=== PATIENT | female | born 1995 | race Caucasian/White ===

== ENCOUNTER 2018-08-30 11:37 | Inpatient (IN) | payer OTHER ==
[2018-08-30] MEDS ORDERED: Nicotine Inhaler* 10 MG AMP INH PRN (12:23)
[2018-08-30] MEDS ORDERED: Mouth Piece, Nicotine* 1 EACH CARTRIDGE INH ONE (13:00)
[2018-08-30 13:02] LABS: ABS Basophils 0 10^3/ul (0-0.2); ABS Eosinophils 0.2 10^3/ul (0-0.6); ABS Lymphocytes 1.9 10^3/ul (1.0-4.8); ABS Monocytes 0.5 10^3/ul (0-0.8); ABS Neutrophils 3.2 10^3/ul (1.5-7.7); ABS Nucleated RBC 0 10^3/ul; Eosinophil % 2.8 %; Hematocrit 40 % (35-47); Hemoglobin 13.6 g/dl (12.0-16.0); Lymphocyte % 32.8 %; Mean Corpuscular HGB Conc 34 g/dl (31-36); Mean Corpuscular Hemoglobin 32 pg (27-31); Mean Corpuscular Volume 94 fL (80-97); Nucleated Red Blood Cells % 0; Platelet Count 234 10^3/ul (150-450); Red Blood Count 4.31 10^6/ul (4.00-5.40); Red Cell Distribution Width 13 % (10.5-15); White Blood Count 5.9 10^3/ul (3.5-10.8)
[2018-08-30 13:02] LABS: Urine Appearance Turbid; Urine Bacteria Absent (Absent); Urine Bilirubin Negative (Negative); Urine Blood Negative (Negative); Urine Color Yellow; Urine Glucose Negative (Negative); Urine Ketones Negative (Negative); Urine Nitrite Negative (Negative); Urine Protein 1+(30 mg/dL) (Negative); Urine Red Blood Cell Absent (Absent); Urine Squamous Epithelial Cell Present (Absent); Urine Urobilinogen Negative (Negative); Urine White Blood Cell Trace(0-5/hpf) (Absent)
[2018-08-30 13:17] LABS: Barbiturates Urine Screen None Detected (None Detect); Benzodiazepine Urine Screen None Detected (None Detect); Urine Cannabinoids Screen Presumptive Positive (None Detect)
[2018-08-30 13:20] LABS: ALT 16 U/L (7-52); AST 9 U/L (13-39); Albumin 4.6 g/dL (3.2-5.2); Albumin/Globulin Ratio 1.8 (1-3); Alkaline Phosphatase 70 U/L (34-104); Anion Gap 4 mmol/L (2-11); BUN/Creatinine Ratio 17.7 (8-20); Blood Urea Nitrogen 11 mg/dL (6-24); CO2 Carbon Dioxide 28 mmol/L (22-32); Calcium 9.4 mg/dL (8.6-10.3); Chloride 106 mmol/L (101-111); EGFR Non-African American 121.5 (>60); Globulin 2.5 g/dL (2-4); Glucose 95 mg/dL (70-100); Potassium 4.2 mmol/L (3.5-5.0); Sodium 138 mmol/L (135-145); Total Protein 7.1 g/dL (6.4-8.9)
[2018-08-30 14:32] LABS: TSH (Thyroid Stimulating Horm) 2.15 mcIU/mL (0.34-5.60)
[2018-08-30 14:38] LABS: Acetaminophen < 15 mcg/mL; Alcohol < 10 mg/dL (<10); Salicylate < 2.50 mg/dL (<30)
--- NOTE | 2018-08-30 15:40 | ED ---
Psychiatric Complaint - HPI Summary HPI Summary: Patient is a 22-year-old female with a complicated medical history presenting to the ED with suicidal ideations. She states she was recently placed on Vimpat for her seizures and she notes this to have a black box warning of suicidal thoughts. She states although she has had suicidal thoughts for most of her life, they have recently increased since being on this medication. She states she deals with a lot of medical issues on a daily basis, which is contributory to her anxiety and depression. She states she has highs and lows, having good and bad days. Today is a "normal day." She states she is easy to anger approximately 2 days ago she states she threw her phone against the wall for something very minor. She denies any drug use except for cannabis, denies any alcohol use. - History Of Current Complaint Chief Complaint: EDMentalHealth Time Seen by Provider: 08/30/18 11:50 Hx Obtained From: Patient Hx Last Menstrual Period: pt. has IUD ?: No Onset/Duration: Sudden Onset Timing: Constant Severity Initially: Moderate Severity Currently: Moderate Character: Manic, Depressed, Anxious Aggravating Factor(s): Nothing Alleviating Factor(s): Nothing Associated Signs And Symptoms: Positive: Negative Has Suicidal: Reports: Thoughts - Risk Factor(s) Completed Suicide Risk Factors: Negative - Allergies/Home Medications Allergies/Adverse Reactions: Allergies Allergy/AdvReac Type Severity Reaction Status Date / Time MS Infliximab [From Remicade] Allergy Severe resp Verified 02/18/17 10:26 failure MS Ibuprofen [Ibuprofen] AdvReac Unknown See Comment Verified 02/18/17 10:26 Home Medications: Home Medications LaCOSAMide LIQ [VimPAT LIQ] 10 ml PO BID MDD 20 ml 08/30/18 [History Confirmed 08/30/18] PMH/Surg Hx/FS Hx/Imm Hx Previously Healthy: Yes Endocrine/Hematology History: Reports: Hx Blood Disorders - von Willebrands, Hx Blood Transfusions - Humate P Denies: Hx Diabetes Cardiovascular History: Denies: Hx Hypertension, Hx Pacemaker/ICD Respiratory History: Denies: Hx Asthma GI History: Reports: Other GI Disorders - colectomy, abnormal us last episode pain 5 days prior History: Denies: Hx Renal Disease Musculoskeletal History: Denies: Hx Rheumatoid Arthritis - arthritisis in back, neck pain, hx of steriods at age 2-11, Hx Osteoporosis Sensory History: Denies: Hx Contacts or Glasses, Hx Hearing Aid Opthamlomology History: Denies: Hx Contacts or Glasses Neurological History: Reports: Hx Seizures - epilepsy, Other Neuro Impairments/ Disorders - , per mother pt still experiences seizures with meds in the past Psychiatric History: Denies: Hx Panic Disorder - Surgical History Surgery Procedure, Year, and Place: colectomy 2007 hx crohns r/t beeding disorder;. fallopian tubes removed - Immunization History Hx Pertussis Vaccination: No Immunizations Up to Date: Yes Infectious Disease History: No Infectious Disease History: Denies: Traveled Outside the [place] in Last 30 Days - Social History Occupation: Unemployed Lives: With Family Alcohol Use: None Hx Substance Use: No Substance Use Type: Reports: None Hx Tobacco Use: No Smoking Status (MU): Never Smoked Tobacco Have You Smoked in the Last Year: No Review of Systems Constitutional: Negative Negative: Fever, Chills, Fatigue, Skin Diaphoresis Negative: Palpitations, Chest Pain Negative: Shortness Of Breath, Cough Genitourinary: Negative Positive: no symptoms reported, see HPI Negative: Arthralgia, Myalgia Negative: Headache, Weakness, Paresthesia Positive: Anxious, Depressed All Other Systems Reviewed And Are Negative: Yes Physical Exam Triage Information Reviewed: Yes Vital Signs On Initial Exam: Initial Vitals Temp Pulse Resp BP Pulse Ox 96.8 F 102 18 119/80 99 08/30/18 11:41 08/30/18 11:41 08/30/18 11:41 08/30/18 11:41 08/30/18 11:41 Vital Signs Reviewed: Yes Appearance: Positive: Well-Appearing, Well-Nourished Skin: Positive: Warm, Skin Color Reflects Adequate Perfusion Head/Face: Positive: Normal Head/Face Inspection Eyes: Positive: EOMI, IRIS, Conjunctiva Clear Neck: Positive: Supple, No Lymphadenopathy Respiratory/Lung Sounds: Positive: Clear to Auscultation, Breath Sounds Present Cardiovascular: Positive: RRR, Pulses are Symmetrical in both Upper and Lower Extremities Musculoskeletal: Positive: Normal, Strength/ROM Intact Neurological: Positive: Speech Normal Psychiatric: Positive: Anxious, Other AVPU Assessment: Alert Diagnostics - Vital Signs Vital Signs Temp Pulse Resp BP Pulse Ox 08/30/18 11:41 96.8 F 102 18 119/80 99 - Laboratory Lab Results: Lab Results 08/30/18 08/30/18 08/30/18 Range/Units 12:06 12:06 12:51 WBC 5.9 (3.5-10.8) 10^3/ul RBC 4.31 (4.00-5.40) 10^6/ul Hgb 13.6 (12.0-16.0) g/dl Hct 40 (35-47) % MCV 94 (80-97) fL MCH 32 H (27-31) pg MCHC 34 (31-36) g/dl RDW 13 (10.5-15) % Plt Count 234 (150-450) 10^3/ul MPV 9.0 (7.4-10.4) fL Neut % (Auto) 55.3 % Lymph % (Auto) 32.8 % [place] % (Auto) 8.3 % Eos % (Auto) 2.8 % Baso % (Auto) 0.8 % Absolute Neuts (auto) 3.2 (1.5-7.7) 10^3/ul Absolute Lymphs (auto) 1.9 (1.0-4.8) 10^3/ul Absolute Monos (auto) 0.5 (0-0.8) 10^3/ul Absolute Eos (auto) 0.2 (0-0.6) 10^3/ul Absolute Basos (auto) 0 (0-0.2) 10^3/ul Absolute Nucleated RBC 0 10^3/ul Nucleated RBC % 0 Sodium (135-145) mmol/L Potassium (3.5-5.0) mmol/L Chloride (101-111) mmol/L Carbon Dioxide (22-32) mmol/L Anion Gap (2-11) mmol/L BUN (6-24) mg/dL Creatinine (0.51-0.95) mg/dL Est GFR ( Amer) (>60) Est GFR (Non-Af Amer) (>60) BUN/Creatinine Ratio (8-20) Glucose (70-100) mg/dL Calcium (8.6-10.3) mg/dL Total Bilirubin (0.2-1.0) mg/dL AST (13-39) U/L ALT (7-52) U/L Alkaline Phosphatase (34-104) U/L Total Protein (6.4-8.9) g/dL Albumin (3.2-5.2) g/dL Globulin (2-4) g/dL Albumin/Globulin Ratio (1-3) TSH (0.34-5.60) mcIU/mL Urine Color Yellow Urine Appearance Turbid Urine pH 9.0 (5-9) Ur Specific [place] 1.020 (1.010-1.030) Urine Protein 1+(30 mg/dl) A (Negative) Urine Ketones Negative (Negative) Urine Blood Negative (Negative) Urine Nitrate Negative (Negative) Urine Bilirubin Negative (Negative) Urine Urobilinogen Negative (Negative) Ur Leukocyte Esterase 1+ A (Negative) Urine WBC (Auto) Trace(0-5/hpf) (Absent) Urine RBC (Auto) Absent (Absent) Ur Squamous Epith Cells Present A (Absent) Urine Bacteria Absent (Absent) Urine Glucose Negative (Negative) Salicylates (<30) mg/dL Urine Opiates Screen None detected (None Detect) Acetaminophen mcg/mL Ur Barbiturates Screen None detected (None Detect) Ur Phencyclidine Scrn None detected (None Detect) Ur Amphetamines Screen None detected (None Detect) U Benzodiazepines Scrn None detected (None Detect) Urine Cocaine Screen None detected (None Detect) U Cannabinoids Screen Presumptive positive A (None Detect) Serum Alcohol (<10) mg/dL 08/30/18 Range/Units 12:51 WBC (3.5-10.8) 10^3/ul RBC (4.00-5.40) 10^6/ul Hgb (12.0-16.0) g/dl Hct (35-47) % MCV (80-97) fL MCH (27-31) pg MCHC (31-36) g/dl RDW (10.5-15) % Plt Count (150-450) 10^3/ul MPV (7.4-10.4) fL Neut % (Auto) % Lymph % (Auto) % [place] % (Auto) % Eos % (Auto) % Baso % (Auto) % Absolute Neuts (auto) (1.5-7.7) 10^3/ul Absolute Lymphs (auto) (1.0-4.8) 10^3/ul Absolute Monos (auto) (0-0.8) 10^3/ul Absolute Eos (auto) (0-0.6) 10^3/ul Absolute Basos (auto) (0-0.2) 10^3/ul Absolute Nucleated RBC 10^3/ul Nucleated RBC % Sodium 138 (135-145) mmol/L Potassium 4.2 (3.5-5.0) mmol/L Chloride 106 (101-111) mmol/L Carbon Dioxide 28 (22-32) mmol/L Anion Gap 4 (2-11) mmol/L BUN 11 (6-24) mg/dL Creatinine 0.62 (0.51-0.95) mg/dL Est GFR ( Amer) 147.0 (>60) Est GFR (Non-Af Amer) 121.5 (>60) BUN/Creatinine Ratio 17.7 (8-20) Glucose 95 (70-100) mg/dL Calcium 9.4 (8.6-10.3) mg/dL Total Bilirubin 0.40 (0.2-1.0) mg/dL AST 9 L (13-39) U/L ALT 16 (7-52) U/L Alkaline Phosphatase 70 (34-104) U/L Total Protein 7.1 (6.4-8.9) g/dL Albumin 4.6 (3.2-5.2) g/dL Globulin 2.5 (2-4) g/dL Albumin/Globulin Ratio 1.8 (1-3) TSH 2.15 (0.34-5.60) mcIU/mL Urine Color Urine Appearance Urine pH (5-9) Ur Specific [place] (1.010-1.030) Urine Protein (Negative) Urine Ketones (Negative) Urine Blood (Negative) Urine Nitrate (Negative) Urine Bilirubin (Negative) Urine Urobilinogen (Negative) Ur Leukocyte Esterase (Negative) Urine WBC (Auto) (Absent) Urine RBC (Auto) (Absent) Ur Squamous Epith Cells (Absent) Urine Bacteria (Absent) Urine Glucose (Negative) Salicylates < 2.50 (<30) mg/dL Urine Opiates Screen (None Detect) Acetaminophen < 15 mcg/mL Ur Barbiturates Screen (None Detect) Ur Phencyclidine Scrn (None Detect) Ur Amphetamines Screen (None Detect) U Benzodiazepines Scrn (None Detect) Urine Cocaine Screen (None Detect) U Cannabinoids Screen (None Detect) Serum Alcohol < 10 (<10) mg/dL Result Diagrams: 08/30/18 12:51 08/30/18 12:51 Lab Statement: Any lab studies that have been ordered have been reviewed, and results considered in the medical decision making process. Course/Dx - Course Course Of Treatment: Patient is evaluated for increasing suicidal ideations. She states she has had this for several years, however this has increased recently. She denies any plan. She states she is having a tough time dealing with her physical medical problems. She denies any pain at this time. She states today is a "normal day." However she has good and bad days. She endorses labile emotions and moods and is unable to control it well. She endorses self-harm, most recently approximately 5 days ago when she pinched her skin very hard. This left no pedroza and she denies any trauma otherwise. Labs obtained are WNL. Tox screen shows cannabinoids, negative for alcohol or other drugs. She is cleared for mental health evaluation. She is signed out to Dylon Collazo NP at 5:30 pending MHU. Assessment/Plan: Patient received full mental health evaluation and was accepted for admission by the psychiatrist on a voluntary basis. - Differential Dx/Clinical Impression Differential Diagnosis/HQI/PQRI: Positive: Anxiety, Depression Provider Diagnosis: Suicidal ideation, Depressive disorder, not elsewhere classified Discharge - Sign-Out/Discharge Documenting (check all that apply): Patient Departure Patient Received Moderate/Deep Sedation with Procedure: No - Discharge Plan Condition: Stable [place] [place]errals: Celine Watkins MD [Primary Care Provider] - - Billing Disposition and Condition Condition: STABLE Disposition: [place] [facility] [place] - Attestation Statements Document Initiated by Andresibstephon: No
[2018-08-30] MEDS ORDERED: Al Hydrox/Mg Hydrox/Simet LIQ* 30 ML UDC PO PRN (16:27)
[2018-08-30] MEDS ORDERED: Acetaminophen TAB* 325 MG PO PRN (16:27)
--- NOTE | 2018-08-30 17:43 | ED ---
Progress - Progress Note Progress Note: Receiving sign out from JEAN-PIERRE Gray, pending MHE. As per Dr. Hatch pt will be admitted to [facility] [place] with a final dx of depression. Course/Dx - Diagnoses Provider Diagnoses: Depression - Provider Notifications Discussed Care Of Patient With: Yamil Hatch Time Discussed With Above Provider: 17:35 Instructed by Provider To: Admit As Inpatient Discharge - Sign-Out/Discharge Documenting (check all that apply): Patient Departure - Admit, Receiving Sign- Out Receiving patient FROM: Lani Ellison Patient Received Moderate/Deep Sedation with Procedure: No - Discharge Plan Condition: Stable Disposition: PSYCHIATRIC FACILITY[place] [place] Referrals: Celine Watkins MD [Primary Care Provider] - - Attestation Statements Document Initiated by Scribe: Yes Documenting Scribe: Adelaida Quintero Provider For Whom Scribe is Documenting (Include Credential): Jakob Mendoza MD Scribe Attestation: Adelaida Mays, scribed for Jakob Mendoza MD on 08/30/18 at 1741. Status of Scribe Document: Ready
[2018-08-30] MEDS: LaCOSAMide ORAL LIQ 10 MG/ML PO SCH (21:47)
[2018-08-30] MEDS: hydrOXYzine HCL TAB* 50 MG PO PRN (22:14)
[2018-08-31 08:24] LABS: HDL Cholesterol 40.3 mg/dL
[2018-08-31] MEDS: LaCOSAMide ORAL LIQ 10 MG/ML PO SCH ×2 (08:51→20:14)
--- NOTE | 2018-08-31 10:35 | HP ---
H&P (Free Text) History and Physical: Justification for admission: Immediate Safety. CC " I felt that I gave up." The patient was brought to [facility] by mother after having thoughts of cutting her wrist. She said I have a blood disorder and I know I would if I cut myself. She reported getting angry lately and throwing her phone and getting upset with her mother. She reported that she has not been enjoying things that she once did such as writing and going to school. She wants to be remembered and loved. She said that lately she can only think of all the bad things in her life and can not remember any of the good things. She scratched herself and punched her self in the legs. She has been smoking cannabis daily for the last month or so because she said it helps with her anxiety. She denied access to firearms or stockpiles of medications. She reports mediocre sleep and reports it is hard to have motivation to do anything. She reported having adequate appetite. The patient denied homicidal ideation intent or plan. The patient denied auditory and/ or visual hallucinations. MDD She reported feeling depressed or having diminished interest in hobbies or interests which were present in the past , for most of the time, lasting more than 2 weeks. She reported having crying spells , feeling empty inside, feelings of hopelessness or worthless. She denied unintentional weight loss or appetite . She reported feeling no purpose in life. Anxiety She reported having symptoms of anxiety such as having times where heart feels that it is beating out of chest , sweaty palms, or shallow breathing. Denied having uncomfortable or intrusive thoughts. Reported feeling restless, high strung, or worrying too much most of the time. Bipolar Denied symptoms of kathy such as having many ideas at once. Denied increased talkativeness where no one can interrupt. Denied feeling irritable most of the time while having an persistent abundance of energy most of the day without the use of energy drinks, stimulants, or recreational drug use. Denied an increase in intensity in goal directed activities. Denied having the decreased need to sleep for days , having prolonged elevated heighted mood , or feeling on top of the world. Denied impulsive risky sexual encounters. Denied spending money recklessly , going on spending sprees wiping out savings. Denied impulsively traveling out of town or country, having super arias, and unrealistic wealth or fame. Psychosis Does not endorse hearing things that other people do not hear or seeing things other people do not see. Denied feeling that TV is making references. Denied feeling that people are spying , following , or reading their thoughts. Phobias: Patient denied having excessive fear of a particular thing or situation. Eating disorders: Patient denied having excessive eating habits or feelings of guilt after eating. Denied repeated episodes of self induced vomiting after eating. PTSD Denied flashbacks, nightmares and avoidance of a prior traumatic event. PAST PSYCHIATRIC HISTORY: Prior Diagnosis : None History of past Psychiatric Hospitalizations: No prior psychiatric admission. History of past suicide/homicide attempts : Denied past suicide attempts. She denied past homicidal incidents. Outpatient follow-up: [facility] Medications: Denied Past trials of medications FAMILY HISTORY: - Suicide: denied suicide in the family. - Mental illness: Mother history of depression with no treatment. - Substance abuse: Father - Alcohol abuse SUBSTANCE ABUSE HISTORY: She denied using tobacco, heroin and cocaine other illicit substances. She denied abusing pills not prescribed . She denied past Substance abuse treatment. - EtOH: drinks socially 1-2x month < 5drinks - Cannabis: Smokes daily for the couple of months SOCIAL HISTORY: - Childhood: She grew up in [place] and spend a significant time in [facility] receiving medical treatment. She was raised by her mother and her father never had a role in her life. She had her colon removed and reports having a horrible experience with doctors in the past and wrote a book about the dudes in [employer] - Education: Currently in College - Living situation: Lives with friend in [facility]. - Relationship: single no children never . - Legal history: Denied - service history: Denied PAST MEDICAL HISTORY: 1) Seizure Disorder 2) Colitis 3) Chrons Disease 4) Pseudo tumor cerebri 5) Von Willebrand Disease 6) Osteopenia 7) History of surgery - removal of colon and fallopian tubes. Currently has IUD. Allergies: Infliximab and Ibuprofen Physical Exam: Please see ED note Mental Status Exam on Admission APPEARANCE : 22 year old female who appears stated age. Patient is not malodourous, and appears to have fair hygiene and grooming. BEHAVIOR: Cooperative , calm EYE CONTACT: Fair PSYCHOMOTOR ACTIVITY: No psychomotor agitation or retardation. MOVEMENTS: No abnormal movements observed. SPEECH : Normal rate, rhythm, volume and tone. MOOD : " I am sad" AFFECT : Constricted Range. Mood incongruent. THOUGHT PROCESS: formulated and organized in a logical, linear goal directed manner. No flight of ideas , neologisms, circumstantial, or tangential thought process. THOUGHT CONTENT: Preoccupation of negative experiences in the past . PERCEPTION: No current auditory or visual hallucinations. Doesnt appear to be responding to internal cues. No evidence of depersonalization , de-realization, or illusions COGNITIVE: Concentration, memory , and fund of knowledge intact SUICIDALITY suicidal ideation with plan to cut her wrist HOMICIDALITY Denied homicidal ideation, intent or plan. ORIENTATION: Oriented to self, location, and time. 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 Panic Disorder. Cannabis Use disorder. Assessment: 22 year old sil with no past psychiatric history came to the hospital and was admitted to the BSU at [facility] for suicidal ideation with plan to cut her wrist. Plan # Justification for Admission: For immediate safety per outlined in the [place] Mental Hygiene Code. # Voluntary admission. The patient requires inpatient admission at this time to assure safety, receive treatment and work toward stabilization. #Patient evaluated in ED and was determined by the emergency room Physician to be medically stable for admission to the BSU. # Labs ordered: CBC, CMP, UDS, TSH, TSH, B-HCG . EKG. #Admit to BSU, Q15 minute observation. Start customized diet per nutrition services and dietary services . Encourage participation in activities on the milieu. # Obtain collateral information from mother once release is signed. #Start celexa 20mg PO daily. #Per neurology Vimpat 100mg BID for seizure disorder. # Collaboration with Social Work to work toward discharge planning. #Seizure precautions in place. # TRIM LINE WORKER consult to for vaginal bleeding and discharge. #EKG reviewed by section crews activities clerk hospitalist and determined to be normal and no need for further evaluation #Neurology on board and was consulted in the ED #Goals before discharge include: Decrease Anxiety and dysphoria. #Dietary Consult for dietary choices in those with Chrons disease. The risks, benefits, and alternative treatment options were discussed as well as of the risks of refusing treatment. After this discussion and an acknowledgement of this understanding was made. A risk benefit assessment of treatment was considered and discussed with the patient. When comparing the risks of treatment with the dangers of current clinical presentation. The benefits of treatment outweigh the treatment risks at this time. Risks of behavioral changes, serotonin syndrome, risks, seizure , and suicidal ideation were among some of the risks discussed. Vital Signs Temp Pulse Resp BP Pulse Ox 98.5 F 75 18 110/62 100 08/31/18 07:41 08/31/18 07:41 08/31/18 07:41 08/31/18 07:41 08/31/18 07:41 08/30/18 08/30/18 08/30/18 12:06 12:06 12:51 WBC 5.9 RBC 4.31 Hgb 13.6 Hct 40 MCV 94 MCH 32 H MCHC 34 RDW 13 Plt Count 234 MPV 9.0 Neut % (Auto) 55.3 Lymph % (Auto) 32.8 [place] % (Auto) 8.3 Eos % (Auto) 2.8 Baso % (Auto) 0.8 Absolute Neuts (auto) 3.2 Absolute Lymphs (auto) 1.9 Absolute Monos (auto) 0.5 Absolute Eos (auto) 0.2 Absolute Basos (auto) 0 Absolute Nucleated RBC 0 Nucleated RBC % 0 Sodium Potassium Chloride Carbon Dioxide Anion Gap BUN Creatinine Est GFR ( Amer) Est GFR (Non-Af Amer) BUN/Creatinine Ratio Glucose Hemoglobin A1c Calcium Total Bilirubin AST ALT Alkaline Phosphatase Total Protein Albumin Globulin Albumin/Globulin Ratio Triglycerides Cholesterol LDL Cholesterol HDL Cholesterol TSH Urine Color Yellow Urine Appearance Turbid Urine pH 9.0 Ur Specific [place] 1.020 Urine Protein 1+(30 mg/dl) A Urine Ketones Negative Urine Blood Negative Urine Nitrate Negative Urine Bilirubin Negative Urine Urobilinogen Negative Ur Leukocyte Esterase 1+ A Urine WBC (Auto) Trace(0-5/hpf) Urine RBC (Auto) Absent Ur Squamous Epith Cells Present A Urine Bacteria Absent Urine Glucose Negative Salicylates Urine Opiates Screen None detected Acetaminophen Ur Barbiturates Screen None detected Ur Phencyclidine Scrn None detected Ur Amphetamines Screen None detected U Benzodiazepines Scrn None detected Urine Cocaine Screen None detected U Cannabinoids Screen Presumptive positive A Serum Alcohol 08/30/18 08/31/18 08/31/18 12:51 07:48 07:48 WBC RBC Hgb Hct MCV MCH MCHC RDW Plt Count MPV Neut % (Auto) Lymph % (Auto) [place] % (Auto) Eos % (Auto) Baso % (Auto) Absolute Neuts (auto) Absolute Lymphs (auto) Absolute Monos (auto) Absolute Eos (auto) Absolute Basos (auto) Absolute Nucleated RBC Nucleated RBC % Sodium 138 Potassium 4.2 Chloride 106 Carbon Dioxide 28 Anion Gap 4 BUN 11 Creatinine 0.62 Est GFR ( Amer) 147.0 Est GFR (Non-Af Amer) 121.5 BUN/Creatinine Ratio 17.7 Glucose 95 Hemoglobin A1c 4.8 Calcium 9.4 Total Bilirubin 0.40 AST 9 L ALT 16 Alkaline Phosphatase 70 Total Protein 7.1 Albumin 4.6 Globulin 2.5 Albumin/Globulin Ratio 1.8 Triglycerides 144 Cholesterol 126 LDL Cholesterol 57 HDL Cholesterol 40.3 TSH 2.15 Urine Color Urine Appearance Urine pH Ur Specific [place] Urine Protein Urine Ketones Urine Blood Urine Nitrate Urine Bilirubin Urine Urobilinogen Ur Leukocyte Esterase Urine WBC (Auto) Urine RBC (Auto) Ur Squamous Epith Cells Urine Bacteria Urine Glucose Salicylates < 2.50 Urine Opiates Screen Acetaminophen < 15 Ur Barbiturates Screen Ur Phencyclidine Scrn Ur Amphetamines Screen U Benzodiazepines Scrn Urine Cocaine Screen U Cannabinoids Screen Serum Alcohol < 10
--- NOTE | 2018-08-31 11:00 | PN ---
BSU: Group Therapy Note - Service Type Service Type: [id number] Group Psychotherapy - Cognitive Behavioral Group Therapy ( CBT):Patient was attentive and participatory in CBT programming this morning, and remained in good behavioral control. Patient expressed positive insights regarding relevant treatment interventions and goals.
[2018-08-31] MEDS ORDERED: Citalopram TAB* 20 MG PO SCH (13:00)
[2018-08-31] MEDS ORDERED: Ondansetron TAB* 4 MG ONE ×2 (16:37→16:38)
[2018-08-31] MEDS: Ondansetron TAB* 4 MG PO PRN (16:41)
[2018-08-31] MEDS: hydrOXYzine HCL TAB* 50 MG PO PRN (19:19)
[2018-09-01] MEDS: LaCOSAMide ORAL LIQ 10 MG/ML PO SCH ×2 (08:51→20:06)
--- NOTE | 2018-09-01 09:15 | PN ---
Progress Note - Progress Note Date of Service: 09/01/18 Note: consult for vaginal discharge 22 yo g0 with a complaint of a vaginal discharge with an odor. no itching or burning. concerned she may have BV. pt currently uses an iud for control and control of her menstrual bleeding related to von willebrands disease. Pt is currently not sexualy active and has not been for over 6 months. gc/ chlamydia to be done off urine affirm done at bedside for BV/teast / Trich pt and I spent time discussing her hormone interaction with her depression. pt concerned that the iud may have some impact on this. I discussed there is no way to tell if the iud is adversely affecting her mood without removal . She had enough trouble with her cycles and other oc's that seems like a poor choice. There are no helpful hormone levels to check that would provide us with that information surrounding the iud. Will rx BV if present on affirm suggest she follow up as an outpatient with a nurse practitioner per diem if she wishes to explore alternatives to her iud Jose Ramon Harry MD
[2018-09-01 13:53] LABS: Neisseria gonorrhoeae (GC) RNA Negative (Negative)
--- NOTE | 2018-09-01 14:30 | PN ---
Subjective - Subjective Date of Service: 09/01/18 Service Type: [id number] Hosp care 35 min high complexity Subjective: Nursing Report: Patient was visible on unit, no chemical restraints or PRNs. Seizure yesterday evening. Attending group activities. CC: "I am okay Patient was seen and evaluated in the common room. Her family visited today and visit went well. The patient reported she feels safe on the unit and is interacting with peers. She voices her concern about the possibility of the new medication will cause seizures. She reported having an adequate appetite and sleep. The patient reports attending and participating in day groups. Per nursing no behavioral issues or overnight events reported. She denied homicidal ideation intent or plan. She denied auditory and or visual hallucinations. She fell during a seziure and went for a x-ray of her elbow. Objective - Appearance Appearance: Healthy Appearing Dysmorphic Features: No Hygiene: Normal Grooming: Well Kept - Behavior Psychomotor Activities: Normal Exhibits Abnormal Movement: No - Attitude and Relatedness Attitude and Relatedness: Cooperative Eye Contact: Fair - Speech Quality: Unpressured Latencies: Normal Quantity: Appropriate - Mood Patient's Decription of Mood: "Okay" - Affect Observed Affect: Depressed Affect Consistent with: Euthymia - Thought Process Patient's Thought Process: Goal Directed Thought Content: Yes Suicidal Planning, No Passive Wish, No Homicidal Ideation, No Paranoid Ideation - Sensorium Experiencing Hallucinations: No, Sensorium is Clear Type of Hallucinations: Visual: No, Auditory: No, Command: No - Level of Consciousness Level of Consciousness: Alert Orientation: Yes Intact, Yes Orientated to Time, Yes Orientated to Place, Yes Orientated to Person - Impulse Control Impulse Control: Impaired - Insight and Judgement Insight and Judgement: Fair - Group Participation Particating in Group Activities: Yes - Medication Management Medication Management Adherence: Yes Assessment - Assessment Merits Inpatient Hospitalization: For Immediate Safety Clinical Impression: Assessment: 22 year old sil with no past psychiatric history came to the hospital and was admitted to the BSU at [facility] for suicidal ideation with plan to cut her wrist. Plan - Plan Treatment Plan: Name: LILIA VENEGAS Birthdate: 1995 [id number] Plan # Voluntary admission. The patient requires inpatient admission at this time to assure safety, receive treatment and work toward stabilization. #Q30 minute observation with staff pass. #Start lexapro 5mg po at night. Monitor for seizure. #Continue Vimpat 100mg BID for seizure disorder. #Seizure precautions in place. Patient refused medical bed. #D/C celexa #Zofran 4mg Q6H PRN for nausea # ETHYLENE PLANT OPERATOR consult completed #Xray of elbow completed and no fractures were evident Vital Signs Temp Pulse Resp BP Pulse Ox 99.1 F 86 16 106/70 99 09/01/18 08:05 09/01/18 08:05 09/01/18 08:05 09/01/18 08:05 09/01/18 08:05 Laboratory Results - last 24 hr 08/31/18 17:30 C.trachomatis (Amp Det) Negative N.gonorrhoeae (Amp Det) Negative Acetaminophen (Tylenol Tab*) 650 mg PO Q4H PRN PRN Reason: for pain; or Temp >101 F Last Admin: 09/01/18 13:04 Dose: 650 mg Al Hydrox/Mg Hydrox/Simethicone (Maalox Plus*) 30 ml PO Q4H PRN PRN Reason: INDIGESTION Escitalopram Oxalate (Lexapro (Nf)) 5 mg PO BEDTIME MAXIMILIAN Hydroxyzine HCl (Atarax Tab*) 50 mg PO Q6H PRN PRN Reason: ANXIETY Last Admin: 08/31/18 19:19 Dose: 50 mg Lacosamide (Vimpat Liq) 100 mg PO BID MAXIMILIAN Last Admin: 09/01/18 08:51 Dose: 100 mg Nicotine (Nicotine Inhaler*) 10 mg INH Q2H PRN PRN Reason: CRAVING Ondansetron HCl (Zofran Tab*) 4 mg PO Q6H PRN PRN Reason: NAUSEA Last Admin: 08/31/18 16:41 Dose: 4 mg Sodium 138 mmol/L (135-145) 08/30/18 12:51 Potassium 4.2 mmol/L (3.5-5.0) 08/30/18 12:51 BUN 11 mg/dL (6-24) 08/30/18 12:51 Creatinine 0.62 mg/dL (0.51-0.95) 08/30/18 12:51 Hemoglobin A1c 4.8 % (4.0-5.6) 08/31/18 07:48 Calcium 9.4 mg/dL (8.6-10.3) 08/30/18 12:51 AST 9 U/L (13-39) L 08/30/18 12:51 ALT 16 U/L (7-52) 08/30/18 12:51 Triglycerides 144 mg/dL 08/31/18 07:48 Cholesterol 126 mg/dL 08/31/18 07:48 LDL Cholesterol 57 mg/dL 08/31/18 07:48 Continued Medication Management: Start Medication Medications: Current Medications Acetaminophen (Tylenol Tab*) 650 mg PO Q4H PRN PRN Reason: for pain; or Temp >101 F Last Admin: 09/01/18 13:04 Dose: 650 mg Al Hydrox/Mg Hydrox/Simethicone (Maalox Plus*) 30 ml PO Q4H PRN PRN Reason: INDIGESTION Escitalopram Oxalate (Lexapro (Nf)) 5 mg PO BEDTIME MAXIMILIAN Hydroxyzine HCl (Atarax Tab*) 50 mg PO Q6H PRN PRN Reason: ANXIETY Last Admin: 08/31/18 19:19 Dose: 50 mg Lacosamide (Vimpat Liq) 100 mg PO BID MAXIMILIAN Last Admin: 09/01/18 08:51 Dose: 100 mg Nicotine (Nicotine Inhaler*) 10 mg INH Q2H PRN PRN Reason: CRAVING Ondansetron HCl (Zofran Tab*) 4 mg PO Q6H PRN PRN Reason: NAUSEA Last Admin: 08/31/18 16:41 Dose: 4 mg - Discharge Plan Discharge Plan: Inpatient Hospitalization
[2018-09-01] MEDS: CMCS Escitalopram (NF) 5 MG TAB PO SCH (20:50)
[2018-09-02] MEDS: LaCOSAMide ORAL LIQ 10 MG/ML PO SCH ×2 (09:25→19:57)
[2018-09-02] MEDS: Ondansetron TAB* 4 MG PO PRN ×2 (11:14→23:28)
--- NOTE | 2018-09-02 15:02 | PN ---
Subjective - Subjective Date of Service: 09/02/18 Service Type: 67729 Hosp care 15 min low complexity Subjective: Lilia is seen in weekend coverage for Dr. Arcos. I met with her individually, and thereafter with her mother Daya Venegas, who was visiting the unit for lunch. Lilia denies SI this morning. She is experiencing some nausea, which she attributes to the new trial of escitalopram. She denies any further seizure activity since the change to Lexapro. She is future-oriented, reporting that she has an intake appointment scheduled with an epileptology specialist in [place], [place] named Dr. Blank, who she and her mother describe as "holistic." I assumed this to mean they would be pursuing medical cannabis but I admittedly did not clarify this with them. Staff reports indicate that the patient is calm and adherent with milieu expectations. Objective - Appearance Appearance: Well Developed/Nourished Dysmorphic Features: No Hygiene: Normal Grooming: Well Kept - Behavior Psychomotor Activities: Normal Exhibits Abnormal Movement: No - Attitude and Relatedness Attitude and Relatedness: Cooperative Eye Contact: Good - Speech Quality: Unpressured Latencies: Normal Quantity: Appropriate - Mood Patient's Decription of Mood: "Okay" - Affect Observed Affect: Fair Affect Consistent with: Euthymia - Thought Process Patient's Thought Process: Coherent Thought Content: No Passive Wish, No Suicidal Planning, No Homicidal Ideation, No Paranoid Ideation - Sensorium Experiencing Hallucinations: No, Sensorium is Clear Type of Hallucinations: Visual: No, Auditory: No, Command: No - Level of Consciousness Level of Consciousness: Alert Orientation: Yes Intact, Yes Orientated to Time, Yes Orientated to Place, Yes Orientated to Person - Impulse Control Impulse Control: Tenuous - Insight and Judgement Insight and Judgement: Fair - Group Participation Particating in Group Activities: Yes - Medication Management Medication Management Adherence: Yes Assessment - Assessment Merits Inpatient Hospitalization: For Immediate Safety, For Stabilization Inpatient DSM-V Dx: F06.32 Clinical Impression: Assessment: 22 year old sil with no past psychiatric history came to the hospital and was admitted to the BSU at [facility] for suicidal ideation with plan to cut her wrist. 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 The patient requires inpatient admission at this time to assure safety, receive treatment and work toward stabilization. #Q30 minute observation with staff pass. #Start lexapro 5mg po at night. Monitor for seizure. #Continue Vimpat 100mg BID for seizure disorder. #Seizure precautions in place. Patient refused medical bed. #D/C celexa #Zofran 4mg Q6H PRN for nausea # CONSERVATION ENGINEER consult completed #Xray of elbow completed and no fractures were evident Continued Medication Management: Start Medication Medications: Current Medications Acetaminophen (Tylenol Tab*) 650 mg PO Q4H PRN PRN Reason: for pain; or Temp >101 F Last Admin: 09/01/18 13:04 Dose: 650 mg Al Hydrox/Mg Hydrox/Simethicone (Maalox Plus*) 30 ml PO Q4H PRN PRN Reason: INDIGESTION Escitalopram Oxalate (Lexapro (Nf)) 5 mg PO BEDTIME MAXIMILIAN Last Admin: 09/01/18 20:50 Dose: 5 mg Hydroxyzine HCl (Atarax Tab*) 50 mg PO Q6H PRN PRN Reason: ANXIETY Last Admin: 08/31/18 19:19 Dose: 50 mg Lacosamide (Vimpat Liq) 100 mg PO BID MAXIMILIAN Last Admin: 09/02/18 09:25 Dose: 100 mg Nicotine (Nicotine Inhaler*) 10 mg INH Q2H PRN PRN Reason: CRAVING Ondansetron HCl (Zofran Tab*) 4 mg PO Q6H PRN PRN Reason: NAUSEA Last Admin: 09/02/18 11:14 Dose: 4 mg - Discharge Plan Discharge Plan: Inpatient Hospitalization
[2018-09-02] MEDS: CMCS Escitalopram (NF) 5 MG TAB PO SCH (19:57)
[2018-09-02 20:58] LABS: Lacosamide 4.9 mcg/mL (1.0 - 10.0)
[2018-09-03] MEDS: LaCOSAMide ORAL LIQ 10 MG/ML PO SCH ×2 (08:57→20:08)
[2018-09-03] MEDS: CMCS Escitalopram (NF) 5 MG TAB PO SCH (20:07)
[2018-09-03] MEDS: hydrOXYzine HCL TAB* 50 MG PO PRN (22:38)
[2018-09-04] MEDS: LaCOSAMide ORAL LIQ 10 MG/ML PO SCH ×2 (08:39→21:07)
[2018-09-04] MEDS: metroNIDAZOLE * 500 MG TABLET PO SCH ×2 (09:09→21:07)
--- NOTE | 2018-09-04 11:37 | PN ---
Subjective - Subjective Date of Service: 09/04/18 Service Type: [id number] Hosp care 35 min high complexity Subjective: Nursing Report: Patient was visible on unit, no chemical restraints or PRNs. No Seizures over the weekend . Attending group activities. CC: "I am ready to go home Patient was seen and evaluated in the common room. Her mother was contacted ( Daya [phone]) The patient reported she feels safe on the unit and is interacting with peers. She said that she doesnt think any medications are good for her. She reported feeling more anxious two nights ago. She plans to take medications tonight. She looks forward to going on a trip with her mother. She reported having an adequate appetite and sleep. The patient reports attending and participating in day groups. Per nursing no behavioral issues or overnight events reported. She denied suicidal and or homicidal ideation intent or plan. She denied auditory and or visual hallucinations. Objective - Appearance Appearance: Healthy Appearing Dysmorphic Features: No Hygiene: Normal Grooming: Fairly Well Kept - Behavior Psychomotor Activities: Normal Exhibits Abnormal Movement: No - Attitude and Relatedness Attitude and Relatedness: Needy Eye Contact: Fair - Speech Quality: Unpressured Latencies: Normal Quantity: Appropriate - Mood Patient's Decription of Mood: "Okay" - Affect Observed Affect: Fair Affect Consistent with: Euthymia - Thought Process Patient's Thought Process: Goal Directed Thought Content: No Passive Wish, No Suicidal Planning, No Homicidal Ideation, No Paranoid Ideation - Level of Consciousness Level of Consciousness: Alert Orientation: Yes Intact, Yes Orientated to Time, Yes Orientated to Place, Yes Orientated to Person - Impulse Control Impulse Control: Tenuous - Insight and Judgement Insight and Judgement: Fair - Group Participation Particating in Group Activities: Yes - Medication Management Medication Management Adherence: Partial Assessment - Assessment Merits Inpatient Hospitalization: For Immediate Safety Inpatient DSM-V Dx: F06.32 Clinical Impression: Assessment: 22 year old sil with no past psychiatric history came to the hospital and was admitted to the BSU at [facility] for suicidal ideation with plan to cut her wrist. Patient has shown improvement since admission. Plan - Plan Treatment Plan: Name: LILIA VENEGAS Birthdate: 1995 [id number] Plan # Voluntary admission. The patient requires inpatient admission at this time to assure safety, receive treatment and work toward stabilization. #Q30 minute observation with staff pass. #Continue lexapro 5 mg po at night. Monitor for seizure. Patient reports feeling more anxious with medications, explained that side effects will mitigate with time. TMS and ECT discussed as alternatives to medications #Continue Vimpat 100mg BID for seizure disorder. #Seizure precautions in place. #Zofran 4mg Q6H PRN for nausea Start metronidazole 500mg BID per ADVERTISING ASSISTANT for + [place] Continue hydroxyzine 50mg Q6H PRN. #Patient denied being sexually active for 1 year importance of dangers with seizure medications discussed with . test ordered. Plan for discharge tomorrow. Mother plans pick her up tomorrow and suggested that she follow up with Alejandro Hurtado. Acetaminophen (Tylenol Tab*) 650 mg PO Q4H PRN PRN Reason: for pain; or Temp >101 F Last Admin: 09/01/18 13:04 Dose: 650 mg Al Hydrox/Mg Hydrox/Simethicone (Maalox Plus*) 30 ml PO Q4H PRN PRN Reason: INDIGESTION Escitalopram Oxalate (Lexapro (Nf)) 5 mg PO BEDTIME [facility] Last Admin: 09/03/18 20:07 Dose: Not Given Hydroxyzine HCl (Atarax Tab*) 50 mg PO Q6H PRN PRN Reason: ANXIETY Last Admin: 09/03/18 22:38 Dose: 50 mg Lacosamide (Vimpat Liq) 100 mg PO BID [facility] Last Admin: 09/04/18 08:39 Dose: 100 mg Metronidazole (Flagyl) 500 mg PO BID [facility] Stop: 09/11/18 09:00 Last Admin: 09/04/18 09:09 Dose: 500 mg Ondansetron HCl (Zofran Tab*) 4 mg PO Q6H PRN PRN Reason: NAUSEA Last Admin: 09/02/18 23:28 Dose: 4 mg Laboratory Tests 08/30/18 08/30/18 08/30/18 12:06 12:06 12:51 WBC 5.9 RBC 4.31 Hgb 13.6 Hct 40 MCV 94 MCH 32 H MCHC 34 RDW 13 Plt Count 234 MPV 9.0 Neut % (Auto) 55.3 Lymph % (Auto) 32.8 [place] % (Auto) 8.3 Eos % (Auto) 2.8 Baso % (Auto) 0.8 Absolute Neuts (auto) 3.2 Absolute Lymphs (auto) 1.9 Absolute Monos (auto) 0.5 Absolute Eos (auto) 0.2 Absolute Basos (auto) 0 Absolute Nucleated RBC 0 Nucleated RBC % 0 Sodium Potassium Chloride Carbon Dioxide Anion Gap BUN Creatinine Est GFR ( Amer) Est GFR (Non-Af Amer) BUN/Creatinine Ratio Glucose Hemoglobin A1c Calcium Total Bilirubin AST ALT Alkaline Phosphatase Total Protein Albumin Globulin Albumin/Globulin Ratio Triglycerides Cholesterol LDL Cholesterol HDL Cholesterol TSH Urine Color Yellow Urine Appearance Turbid Urine pH 9.0 Ur Specific [place] 1.020 Urine Protein 1+(30 mg/dl) A Urine Ketones Negative Urine Blood Negative Urine Nitrate Negative Urine Bilirubin Negative Urine Urobilinogen Negative Ur Leukocyte Esterase 1+ A Urine WBC (Auto) Trace(0-5/hpf) Urine RBC (Auto) Absent Ur Squamous Epith Cells Present A Urine Bacteria Absent Urine Glucose Negative Salicylates Urine Opiates Screen None detected Acetaminophen Ur Barbiturates Screen None detected Lacosamide Level Ur Phencyclidine Scrn None detected Ur Amphetamines Screen None detected U Benzodiazepines Scrn None detected Urine Cocaine Screen None detected U Cannabinoids Screen Presumptive positive A Serum Alcohol C.trachomatis (Amp Det) N.gonorrhoeae (Amp Det) 08/30/18 08/30/18 08/31/18 12:51 12:51 07:48 WBC RBC Hgb Hct MCV MCH MCHC RDW Plt Count MPV Neut % (Auto) Lymph % (Auto) [place] % (Auto) Eos % (Auto) Baso % (Auto) Absolute Neuts (auto) Absolute Lymphs (auto) Absolute Monos (auto) Absolute Eos (auto) Absolute Basos (auto) Absolute Nucleated RBC Nucleated RBC % Sodium 138 Potassium 4.2 Chloride 106 Carbon Dioxide 28 Anion Gap 4 BUN 11 Creatinine 0.62 Est GFR ( Amer) 147.0 Est GFR (Non-Af Amer) 121.5 BUN/Creatinine Ratio 17.7 Glucose 95 Hemoglobin A1c Calcium 9.4 Total Bilirubin 0.40 AST 9 L ALT 16 Alkaline Phosphatase 70 Total Protein 7.1 Albumin 4.6 Globulin 2.5 Albumin/Globulin Ratio 1.8 Triglycerides 144 Cholesterol 126 LDL Cholesterol 57 HDL Cholesterol 40.3 TSH 2.15 Urine Color Urine Appearance Urine pH Ur Specific [place] Urine Protein Urine Ketones Urine Blood Urine Nitrate Urine Bilirubin Urine Urobilinogen Ur Leukocyte Esterase Urine WBC (Auto) Urine RBC (Auto) Ur Squamous Epith Cells Urine Bacteria Urine Glucose Salicylates < 2.50 Urine Opiates Screen Acetaminophen < 15 Ur Barbiturates Screen Lacosamide Level 4.9 Ur Phencyclidine Scrn Ur Amphetamines Screen U Benzodiazepines Scrn Urine Cocaine Screen U Cannabinoids Screen Serum Alcohol < 10 C.trachomatis (Amp Det) N.gonorrhoeae (Amp Det) 08/31/18 08/31/18 07:48 17:30 WBC RBC Hgb Hct MCV MCH MCHC RDW Plt Count MPV Neut % (Auto) Lymph % (Auto) [place] % (Auto) Eos % (Auto) Baso % (Auto) Absolute Neuts (auto) Absolute Lymphs (auto) Absolute Monos (auto) Absolute Eos (auto) Absolute Basos (auto) Absolute Nucleated RBC Nucleated RBC % Sodium Potassium Chloride Carbon Dioxide Anion Gap BUN Creatinine Est GFR ( Amer) Est GFR (Non-Af Amer) BUN/Creatinine Ratio Glucose Hemoglobin A1c 4.8 Calcium Total Bilirubin AST ALT Alkaline Phosphatase Total Protein Albumin Globulin Albumin/Globulin Ratio Triglycerides Cholesterol LDL Cholesterol HDL Cholesterol TSH Urine Color Urine Appearance Urine pH Ur Specific [place] Urine Protein Urine Ketones Urine Blood Urine Nitrate Urine Bilirubin Urine Urobilinogen Ur Leukocyte Esterase Urine WBC (Auto) Urine RBC (Auto) Ur Squamous Epith Cells Urine Bacteria Urine Glucose Salicylates Urine Opiates Screen Acetaminophen Ur Barbiturates Screen Lacosamide Level Ur Phencyclidine Scrn Ur Amphetamines Screen U Benzodiazepines Scrn Urine Cocaine Screen U Cannabinoids Screen Serum Alcohol C.trachomatis (Amp Det) Negative N.gonorrhoeae (Amp Det) Negative Continued Medication Management: Consider Medication Medications: Current Medications Acetaminophen (Tylenol Tab*) 650 mg PO Q4H PRN PRN Reason: for pain; or Temp >101 F Last Admin: 09/01/18 13:04 Dose: 650 mg Al Hydrox/Mg Hydrox/Simethicone (Maalox Plus*) 30 ml PO Q4H PRN PRN Reason: INDIGESTION Escitalopram Oxalate (Lexapro (Nf)) 5 mg PO BEDTIME MAXIMILIAN Last Admin: 09/03/18 20:07 Dose: Not Given Hydroxyzine HCl (Atarax Tab*) 50 mg PO Q6H PRN PRN Reason: ANXIETY Last Admin: 09/03/18 22:38 Dose: 50 mg Lacosamide (Vimpat Liq) 100 mg PO BID [facility] Last Admin: 09/04/18 08:39 Dose: 100 mg Metronidazole (Flagyl) 500 mg PO BID [facility] Stop: 09/11/18 09:00 Last Admin: 09/04/18 09:09 Dose: 500 mg Ondansetron HCl (Zofran Tab*) 4 mg PO Q6H PRN PRN Reason: NAUSEA Last Admin: 09/02/18 23:28 Dose: 4 mg - Discharge Plan Discharge Plan: Inpatient Hospitalization
[2018-09-04] MEDS: CMCS Escitalopram (NF) 5 MG TAB PO SCH (21:07)
[2018-09-04] MEDS: hydrOXYzine HCL TAB* 50 MG PO PRN (22:34)
[2018-09-05 07:42] VITALS: BP 113/60
[2018-09-05] MEDS: metroNIDAZOLE * 500 MG TABLET PO SCH (09:13)
[2018-09-05] MEDS: LaCOSAMide ORAL LIQ 10 MG/ML PO SCH (09:13)
--- NOTE | 2018-09-05 10:58 | DS ---
Subjective - Subjective Service Types: [address] [facility] complex over 30 min Discharge Date: 09/05/18 Subjective: Nursing Report: Patient was visible on unit, no chemical restraints or PRNs. . Attending group activities. CC: " I am better Patient was seen and evaluated in the common room. She is looking forward to going to [place] with her mother. The patient reported she feels safe on the unit and is interacting with peers. She said that she doesnt think any medications are good for her. She reported that the medications make her have nightmares. She reported having an adequate appetite and sleep. The patient reports attending and participating in day groups. Per nursing no behavioral issues or overnight events reported. She denied suicidal and or homicidal ideation intent or plan. She denied auditory and or visual hallucinations. Admission HPI: Justification for admission: Immediate Safety. CC " I felt that I gave up." The patient was brought to [facility] by mother after having thoughts of cutting her wrist. She said I have a blood disorder and I know I would if I cut myself. She reported getting angry lately and throwing her phone and getting upset with her mother. She reported that she has not been enjoying things that she once did such as writing and going to school. She wants to be remembered and loved. She said that lately she can only think of all the bad things in her life and can not remember any of the good things. She scratched herself and punched her self in the legs. She has been smoking cannabis daily for the last month or so because she said it helps with her anxiety. She denied access to firearms or stockpiles of medications. She reports mediocre sleep and reports it is hard to have motivation to do anything. She reported having adequate appetite. The patient denied homicidal ideation intent or plan. The patient denied auditory and/ or visual hallucinations. MDD She reported feeling depressed or having diminished interest in hobbies or interests which were present in the past , for most of the time, lasting more than 2 weeks. She reported having crying spells , feeling empty inside, feelings of hopelessness or worthless. She denied unintentional weight loss or appetite . She reported feeling no purpose in life. Anxiety She reported having symptoms of anxiety such as having times where heart feels that it is beating out of chest , sweaty palms, or shallow breathing. Denied having uncomfortable or intrusive thoughts. Reported feeling restless, high strung, or worrying too much most of the time. Bipolar Denied symptoms of kathy such as having many ideas at once. Denied increased talkativeness where no one can interrupt. Denied feeling irritable most of the time while having an persistent abundance of energy most of the day without the use of energy drinks, stimulants, or recreational drug use. Denied an increase in intensity in goal directed activities. Denied having the decreased need to sleep for days , having prolonged elevated heighted mood , or feeling on top of the world. Denied impulsive risky sexual encounters. Denied spending money recklessly , going on spending sprees wiping out savings. Denied impulsively traveling out of town or country, having super arias, and unrealistic wealth or fame. Psychosis Does not endorse hearing things that other people do not hear or seeing things other people do not see. Denied feeling that TV is making references. Denied feeling that people are spying , following , or reading their thoughts. Phobias: Patient denied having excessive fear of a particular thing or situation. Eating disorders: Patient denied having excessive eating habits or feelings of guilt after eating. Denied repeated episodes of self induced vomiting after eating. PTSD Denied flashbacks, nightmares and avoidance of a prior traumatic event. PAST PSYCHIATRIC HISTORY: Prior Diagnosis : None History of past Psychiatric Hospitalizations: No prior psychiatric admission. History of past suicide/homicide attempts : Denied past suicide attempts. She denied past homicidal incidents. Outpatient follow-up: Therapist at [facility]. Medications: Denied Past trials of medications FAMILY HISTORY: - Suicide: denied suicide in the family. - Mental illness: Mother history of depression with no treatment. - Substance abuse: Father - Alcohol abuse SUBSTANCE ABUSE HISTORY: She denied using tobacco, heroin and cocaine other illicit substances. She denied abusing pills not prescribed . She denied past Substance abuse treatment. - EtOH: drinks socially 1-2x month < 5drinks - Cannabis: Smokes daily for the couple of months SOCIAL HISTORY: - Childhood: She grew up in [place] and spend a significant time in [facility] receiving medical treatment. She was raised by her mother and her father never had a role in her life. 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 - Relationship: single no children never . - Legal history: Denied - service history: Denied PAST MEDICAL HISTORY: 1) Seizure Disorder 2) Colitis 3) Chrons Disease 4) Pseudo tumor cerebri 5) Von Willebrand Disease 6) Osteopenia 7) History of surgery - removal of colon and fallopian tubes. Currently has IUD. Allergies: Infliximab and Ibuprofen Physical Exam: Please see ED note Mental Status Exam on Admission APPEARANCE : 22 year old female who appears stated age. Patient is not malodourous, and appears to have fair hygiene and grooming. BEHAVIOR: Cooperative , calm EYE CONTACT: Fair PSYCHOMOTOR ACTIVITY: No psychomotor agitation or retardation. MOVEMENTS: No abnormal movements observed. SPEECH : Normal rate, rhythm, volume and tone. MOOD : " I am sad" AFFECT : Constricted Range. Mood incongruent. THOUGHT PROCESS: formulated and organized in a logical, linear goal directed manner. No flight of ideas , neologisms, circumstantial, or tangential thought process. THOUGHT CONTENT: Preoccupation of negative experiences in the past . PERCEPTION: No current auditory or visual hallucinations. Doesnt appear to be responding to internal cues. No evidence of depersonalization , de-realization, or illusions COGNITIVE: Concentration, memory , and fund of knowledge intact SUICIDALITY suicidal ideation with plan to cut her wrist HOMICIDALITY Denied homicidal ideation, intent or plan. ORIENTATION: Oriented to self, location, and time. Assessment: 22 year old sil with no past psychiatric history came to the hospital and was admitted to the BSU at [facility] for suicidal ideation with plan to cut her wrist. Justification for Admission: For immediate safety per outlined in the [facility] Hygiene Code. 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 Panic Disorder. Cannabis Use disorder. Diagnosis on Discharge: Major Depressive Disorder currently in remission. Panic Disorder, Cannabis Use disorder. Condition at the time of discharge: At the time of discharge patient showed improvement of sleep and appetite. The patient was not a danger to self or others. The patient denied suicidal ideations , intent or plans. The patient denied homicidal targets, ideations, intents or plans. This patient participated in psychosocial rehabilitation and gained some insight into problems. The patient gained insight into mental illness, triggers, and treatment. The patient took medication as prescribed. Therapy Resources were offered to the patient. Patient was given a supply of prescriptions at the time of discharge. The patient plans to follow up with the follow up arrangements that were discussed and put in place. Patient was asked to keep appointments as scheduled, take medication as prescribed, have routine follow up care with their primary care physician and refrain from any use of alcohol or drugs. She was future orientated and plans to go on a trip with her mother. The risks, benefits, and alternative treatment options were discussed as well as of the risks of refusing treatment. After this discussion and an acknowledgement of this understanding was made. A risk benefit assessment of treatment was considered and discussed with the patient. When comparing the risks of treatment with the dangers of current clinical presentation. The benefits of treatment outweigh the treatment risks at this time. Risks of behavioral changes, serotonin syndrome, risks, seizure , and suicidal ideation were among some of the risks discussed. Objective - Appearance Appearance: Healthy Appearing Dysmorphic Features: No Hygiene: Normal Grooming: Well Kept - Behavior Psychomotor Activities: Normal Exhibits Abnormal Movement: No - Attitude and Relatedness Attitude and Relatedness: Cooperative Eye Contact: Fair - Speech Quality: Unpressured Latencies: Normal Quantity: Appropriate - Mood Patient's Decription of Mood: "Fine" - Affect Observed Affect: Non-labile Affect Consistent with: Euthymia - Thought Process Patient's Thought Process: Goal Directed Thought Content: No Passive Wish, No Suicidal Planning, No Homicidal Ideation, No Paranoid Ideation - Sensorium Experiencing Hallucinations: No, Sensorium is Clear Type of Hallucinations: Visual: No, Auditory: No, Command: No - Level of Consciousness Level of Consciousness: Alert Orientation: Yes Intact, Yes Orientated to Time, Yes Orientated to Place, Yes Orientated to Person - Impulse Control Impulse Control: Intact - Insight and Judgement Insight and Judgement: Good - Group Participation Particating in Group Activities: Yes - Medication Management Medication Management Adherence: Yes Treatment Course & Assessment Clinical Course & Impression: Hospital course part A and Assessment: 22 year old female with history of seizure disorder and no past psychiatric history came to the hospital and was admitted to the BSU at [facility] for suicidal ideation with plan to cut her wrist. Hospital course part B: The patient was admitted to the adult behavioral unit and placed on 15 minute check for safety. Patient was later given q30 minute and staff pass privileges without incident. The patient did well on the unit and went to groups. Interacted with peers had adequate sleep and regular appetite. Tolerated medication changes without side effects. Group therapy and services were offered. The risks, benefits, and alternative treatment options were discussed as well as of the risks of refusing treatment. Treatment associated risks discussed . After this discussion and an acknowledgement of this understanding , made the decision for the current type of treatment. Follow up care appointments were put in place for follow up care within 7 days of discharge.She was advised of risks treatment have on and BHCG was negative. The patient was advised of the 24 hour / 7 days a week availability of the emergency room and to call 911 in the event of becoming suicidal and/ or homicidal and for all other emergencies. The patient was informed of the contact information for [facility], Suicide Prevention and Crisis Services, National Suicide Prevention Lifeline, [facility], Alcoholics Anonymous, and [facility]. Labs ordered included CBC, CMP. HBA1c, lipid profile, BHCG, C. Trachomatis, N. Gonorrhoeae, UA, Toxicology screen, TSH, Lacosamide, Gardnerella. WINDERMAN was consulted and examined patient. They started treatment for + Gardnerella metronidazole 500mg BID was started. Neurology was consulted for seizure disorder and lacosamide 100mg BID was started. She was started on hydroxyzine 50mg Q6H PRN for anxiety. Seizure precautions put in place. Patient had one seizure while on the unit and hit her left arm. An xray of left arm was performed and there was no evidence of fracture. Patient was provided with supportive care. Medications started included celexa 20mg daily and she reported feelings of nausea and had a seizure and was discontinued. She was given zofran 4mg Q6H PRN for nausea. Lexapro 5mg was started at bedtime and increased to 10mg after discharge. [employer] met with patients Mother and discussed the risks of suicide in those with seizure disorder and importance of follow up care. Before discharge mother felt safe with her being discharged and plans to take her on a trip to [place]. Improvements in patient from the time of admission include: Improved affect, sleep and decrease in anxiety. No longer suicidal and no longer having feelings of hopelessness. She doesnt have a history of service, not hopelessness, no history of suicide attempt, not in a occupation of social isolation, no family history of suicide, no access to firearms. No command hallucinations or substance abuse. Laboratory Tests 08/30/18 08/30/18 08/30/18 12:06 12:06 12:51 WBC 5.9 RBC 4.31 Hgb 13.6 Hct 40 MCV 94 MCH 32 H MCHC 34 RDW 13 Plt Count 234 MPV 9.0 Neut % (Auto) 55.3 Lymph % (Auto) 32.8 Norton % (Auto) 8.3 Eos % (Auto) 2.8 Baso % (Auto) 0.8 Absolute Neuts (auto) 3.2 Absolute Lymphs (auto) 1.9 Absolute Monos (auto) 0.5 Absolute Eos (auto) 0.2 Absolute Basos (auto) 0 Absolute Nucleated RBC 0 Nucleated RBC % 0 Sodium Potassium Chloride Carbon Dioxide Anion Gap BUN Creatinine Est GFR ( Amer) Est GFR (Non-Af Amer) BUN/Creatinine Ratio Glucose Hemoglobin A1c Calcium Total Bilirubin AST ALT Alkaline Phosphatase Total Protein Albumin Globulin Albumin/Globulin Ratio Triglycerides Cholesterol LDL Cholesterol HDL Cholesterol TSH Beta HCG, Quant Urine Color Yellow Urine Appearance Turbid Urine pH 9.0 Ur Specific [place] 1.020 Urine Protein 1+(30 mg/dl) A Urine Ketones Negative Urine Blood Negative Urine Nitrate Negative Urine Bilirubin Negative Urine Urobilinogen Negative Ur Leukocyte Esterase 1+ A Urine WBC (Auto) Trace(0-5/hpf) Urine RBC (Auto) Absent Ur Squamous Epith Cells Present A Urine Bacteria Absent Urine Glucose Negative Salicylates Urine Opiates Screen None detected Acetaminophen Ur Barbiturates Screen None detected Lacosamide Level Ur Phencyclidine Scrn None detected Ur Amphetamines Screen None detected U Benzodiazepines Scrn None detected Urine Cocaine Screen None detected U Cannabinoids Screen Presumptive positive A Serum Alcohol C.trachomatis (Amp Det) N.gonorrhoeae (Amp Det) 08/30/18 08/30/18 08/31/18 12:51 12:51 07:48 WBC RBC Hgb Hct MCV MCH MCHC RDW Plt Count MPV Neut % (Auto) Lymph % (Auto) Norton % (Auto) Eos % (Auto) Baso % (Auto) Absolute Neuts (auto) Absolute Lymphs (auto) Absolute Monos (auto) Absolute Eos (auto) Absolute Basos (auto) Absolute Nucleated RBC Nucleated RBC % Sodium 138 Potassium 4.2 Chloride 106 Carbon Dioxide 28 Anion Gap 4 BUN 11 Creatinine 0.62 Est GFR ( Amer) 147.0 Est GFR (Non-Af Amer) 121.5 BUN/Creatinine Ratio 17.7 Glucose 95 Hemoglobin A1c Calcium 9.4 Total Bilirubin 0.40 AST 9 L ALT 16 Alkaline Phosphatase 70 Total Protein 7.1 Albumin 4.6 Globulin 2.5 Albumin/Globulin Ratio 1.8 Triglycerides 144 Cholesterol 126 LDL Cholesterol 57 HDL Cholesterol 40.3 TSH 2.15 Beta HCG, Quant Urine Color Urine Appearance Urine pH Ur Specific [place] Urine Protein Urine Ketones Urine Blood Urine Nitrate Urine Bilirubin Urine Urobilinogen Ur Leukocyte Esterase Urine WBC (Auto) Urine RBC (Auto) Ur Squamous Epith Cells Urine Bacteria Urine Glucose Salicylates < 2.50 Urine Opiates Screen Acetaminophen < 15 Ur Barbiturates Screen Lacosamide Level 4.9 Ur Phencyclidine Scrn Ur Amphetamines Screen U Benzodiazepines Scrn Urine Cocaine Screen U Cannabinoids Screen Serum Alcohol < 10 C.trachomatis (Amp Det) N.gonorrhoeae (Amp Det) 08/31/18 08/31/18 09/05/18 07:48 17:30 07:55 WBC RBC Hgb Hct MCV MCH MCHC RDW Plt Count MPV Neut % (Auto) Lymph % (Auto) Norton % (Auto) Eos % (Auto) Baso % (Auto) Absolute Neuts (auto) Absolute Lymphs (auto) Absolute Monos (auto) Absolute Eos (auto) Absolute Basos (auto) Absolute Nucleated RBC Nucleated RBC % Sodium Potassium Chloride Carbon Dioxide Anion Gap BUN Creatinine Est GFR ( Amer) Est GFR (Non-Af Amer) BUN/Creatinine Ratio Glucose Hemoglobin A1c 4.8 Calcium Total Bilirubin AST ALT Alkaline Phosphatase Total Protein Albumin Globulin Albumin/Globulin Ratio Triglycerides Cholesterol LDL Cholesterol HDL Cholesterol TSH Beta HCG, Quant < 0.60 Urine Color Urine Appearance Urine pH Ur Specific [place] Urine Protein Urine Ketones Urine Blood Urine Nitrate Urine Bilirubin Urine Urobilinogen Ur Leukocyte Esterase Urine WBC (Auto) Urine RBC (Auto) Ur Squamous Epith Cells Urine Bacteria Urine Glucose Salicylates Urine Opiates Screen Acetaminophen Ur Barbiturates Screen Lacosamide Level Ur Phencyclidine Scrn Ur Amphetamines Screen U Benzodiazepines Scrn Urine Cocaine Screen U Cannabinoids Screen Serum Alcohol C.trachomatis (Amp Det) Negative N.gonorrhoeae (Amp Det) Negative Merits Inpatient Hospitalization: No Clear for Discharge: Adequate Clinical Respons Inpatient DSM-V Dx: F06.32 Discharge Planning - Discharge Planning Discharge Plan: Outpatient Follow Up Outpatient Program: Private Clinician(s) Recommendations for Continuing Care: Medication Management Medications: Current Medications Acetaminophen (Tylenol Tab*) 650 mg PO Q4H PRN PRN Reason: for pain; or Temp >101 F Last Admin: 09/01/18 13:04 Dose: 650 mg Al Hydrox/Mg Hydrox/Simethicone (Maalox Plus*) 30 ml PO Q4H PRN PRN Reason: INDIGESTION Escitalopram Oxalate (Lexapro (Nf)) 10 mg PO BEDTIME MAXIMILIAN Hydroxyzine HCl (Atarax Tab*) 50 mg PO Q6H PRN PRN Reason: ANXIETY Last Admin: 09/04/18 22:34 Dose: 50 mg Lacosamide (Vimpat Liq) 100 mg PO BID MAXIMILIAN Last Admin: 09/05/18 09:13 Dose: 100 mg Metronidazole (Flagyl) 500 mg PO BID [facility] Stop: 09/11/18 09:00 Last Admin: 09/05/18 09:13 Dose: 500 mg Ondansetron HCl (Zofran Tab*) 4 mg PO Q6H PRN PRN Reason: NAUSEA Last Admin: 09/02/18 23:28 Dose: 4 mg Discharge Planning: Prescriptions provided for discharge [x] Yes [] No Follow up care details as per social work arrangements. Patient response to discharge plan: [x] eager for discharge [] agreeable with discharge plan [] ambivalent about discharge [] disagrees with discharge today
--- NOTE | 2018-09-05 13:04 | CONS ---
CONSULTATION REPORT: DATE OF CONSULT: 08/31/18 I saw the patient in the psychiatric ER. REASON FOR CONSULTATION: History of seizures and depression. HISTORY OF PRESENT ILLNESS: Ms. العلي is a very nice 22-year-old female who came to the ER with her mother with some thoughts of hurting herself. She does note having a history of seizures and saw Dr. Zoey Anguiano in the past, she also saw Dr. Derik Pfeiffer several years ago. She has a long history of some depression and she also has a history of von Willebrand disease, a reported history of benign intracranial hypertension, and a reported history of Crohn disease. Her seizures were diagnosed in 2002 and there was some concern for PNES as well. The last time she was seen by Dr. Anguiano was in March 2017. It was noted at that time that she has been on a number of medications in the past including Lamictal, Keppra, Topamax, Tegretol, Trileptal, and zonisamide. She was monitored in the past with long-term video monitoring. It was noted she had a number of GI and colon issues at that time and she did have some of her colon removed. She noted to me that she has never been able to tolerate any seizure medications until she started taking the Vimpat. Dr. Anguiano had recommended at the time of her last visit that she start on Vimpat, although at the time the patient felt like she wanted to try natural remedies rather than medications. 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 When I saw her, she notes that on the Vimpat she has been doing very well from a seizure standpoint over the last several months, but has been having more depression. She does note that she smokes marijuana frequently because it helps with her anxiety. She denies any elisabet suicidal plans or attempts, but does have thoughts and she states that she has been cutting herself more. Her last seizure was reportedly several months ago. In the ER, she was very pleasant. Her mom was at the bedside. While she did endorse depression, she states that from a neurologic standpoint she has been doing very well. She states that she tolerates the Vimpat without any major issues, but she is concerned that the depression may be related based on what she has read in the past. At the time that I saw her, she was not on any seizure medication. PAST MEDICAL HISTORY: As noted above. PAST SURGICAL HISTORY: Includes the colon removal. MEDICATIONS: Her list of home medications include: 1. Metronidazole 500 mg p.o. b.i.d. 2. Vimpat reported 50 mg p.o. b.i.d. 3. Lexapro 10 mg at bedtime. ALLERGIES: Known to INFLIXIMAB and IBUPROFEN. FAMILY HISTORY: Noncontributory. SOCIAL HISTORY: She lives by herself in [place]. She endorses smoking marijuana , but denies any other tobacco products. No illicit substance uses otherwise. Occasional alcohol use. REVIEW OF SYSTEMS: A 14-organ systems as noted above, otherwise negative. PHYSICAL EXAMINATION: Vital Signs: Stable. She is a well-nourished, well- developed female, in no acute distress. She is sitting in the hospital room, pleasant, well dressed, well groomed. HEENT: She is normocephalic, atraumatic. Sclerae are anicteric. Mucous membranes are moist. Oropharynx is clear. Nares are patent. Neck is supple. No thyromegaly, no carotid bruit, no meningismus. Chest: Clear to auscultation bilaterally. Cardiovascular: Regular rate and rhythm. Abdomen: Nontender, nondistended. Extremities: No clubbing, cyanosis, or edema. Neurologic Exam: She is awake, alert, oriented x3. Speech is fluent. There is no dysarthria. Cranial nerves II through XII: Pupils are equally round and reactive to light. Extraocular muscles are intact. Visual owens are full. Face is symmetric. Facial sensation is intact. Tongue midline. Palate raises symmetrically. She spontaneously moves all extremities antigravity. Good strength. Sensation intact to light touch throughout. DTRs are symmetric in the upper and lower extremities. There is no resting or intention tremor. Her gait is normal in stride, normal arm swing. DIAGNOSTIC STUDIES/LAB DATA: Lab work includes CBC with diff. It was essentially normal. Chemistry with AST of 9 which is low, hemoglobin A1c of 4.8 , beta-HCG of 0.60. Urine showed 1+ protein, 1+ leukocyte esterase. She was positive for cannabis, otherwise drug screen was negative. Salicylates less than 2.50. Acetaminophen less than 15. Lacosamide level 4.9. Serum alcohol less than 10. ASSESSMENT AND PLAN: Ms. 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 and she states that since starting that, her seizures have been well controlled. She has not had any seizures for some time, but she notes worsening depression. She is concerned that the medication may be causing her depression. I had a long discussion with the patient. At this point, while suicidality can be associated with Vimpat, she has a long history of depression and suicidal thoughts in the past. I told her that my suspicion is that the Vimpat is not contributing to her underlying depression. In fact, I think that she has responded well to the Vimpat. This has helped her seizures tremendously for the first time in her life and that this is a good thing. I recommended at that time that she stay on the Vimpat. She is going to be voluntarily admitted and I told her that it is very important for her to work on her depression. I spoke with Dr. Hatch and they were going to start making some adjustments to her depression medication. If her depression continues to worsen and she has no response to medication, we could consider trying an additional medication for seizures, but I would want to send her to the [facility] for further evaluation as she has been on almost all seizure medications that are appropriate. For now, she will continue the Vimpat unchanged. I will sign off but will be happy to see her as an outpatient once she is discharged. Please let me know if she has any new symptoms, seizures, or worsening depression. Thank you for the opportunity to participate in her care. [id number]/[facility] #: [id number] MONISHA
[2018-09-05] MEDS ORDERED: CMC:Escitalopram (NF) 10 MG TAB PO SCH (21:00)
== END 2018-09-05 10:00 | disposition home or self-care (01) | DRG 757 ==
LOC: ED 11:37 → BSU 18:47
PROVIDERS: ADMIT Psychiatry & Neurology Psychiatry; ATTEND Psychiatry & Neurology Psychiatry
PROC: GZHZZZZ Group Psychotherapy (ICD-10-PCS; principal; 2018-08-31)
DX: F06.32 Mood disorder due to known physiological condition with major depressive-like episode (principal); D68.0 Von Willebrand disease; R45.851 Suicidal ideations; G40.909 Epilepsy, unspecified, not intractable, without status epilepticus; F41.0 Panic disorder [episodic paroxysmal anxiety]; G93.2 Benign intracranial hypertension; M85.80 Other specified disorders of bone density and structure, unspecified site; F12.90 Cannabis use, unspecified, uncomplicated; W22.8XXA Striking against or struck by other objects, initial encounter; R11.0 Nausea; T43.225A Adverse effect of selective serotonin reuptake inhibitors, initial encounter; Y92.239 Unspecified place in hospital as the place of occurrence of the external cause; Z88.6 Allergy status to analgesic agent; Z88.8 Allergy status to other drugs, medicaments and biological substances; Z90.49 Acquired absence of other specified parts of digestive tract; Z90.79 Acquired absence of other genital organ(s); Z56.0 Unemployment, unspecified
CPT/HCPCS: 36415; 76856; 80053; 80061; 80299; 80307; 80320; 80329; 81003; 81015; 83036; 84443; 84702; 85025; 87086; 87480; 87491; 87510; 87591; 87660; 90853; 93005; 99222; 99231; 99233; 99238; 99284; A9270-GY; G0480

== ENCOUNTER 2024-02-27 09:07 | Observation (INO) ==
[2024-02-27] MEDS ORDERED: Midazolam 10 mg/10 ml VIAL 1 mg/ml 10 ml VIAL (10 mg) ONE (11:04)
[2024-02-27] MEDS ORDERED: fentaNYL 100 mcg/2 ml 50 MCG/ML VIAL ONE (11:04)
[2024-02-27] MEDS ORDERED: Flumazenil 0.5 mg/5 ml 0.1 MG/ML 5 ml VIAL IV PRN (11:50)
[2024-02-27] MEDS ORDERED: Naloxone 0.4 mg VIAL 0.4 mg/ml 1 ml VIAL IV PUSH PRN (11:50)
[2024-02-27] MEDS: Lactated Ringers 1000 ml BAG 1,000 ML IV ONE (14:39)
[2024-02-27] MEDS: fentaNYL 100 mcg/2 ml 50 MCG/ML VIAL IV SLOW PU ONE (14:39)
[2024-02-27] MEDS: Midazolam 10 mg/10 ml VIAL 1 mg/ml 10 ml VIAL (10 mg) IV SLOW PU ONE (14:40)
[2024-02-27] MEDS: Ondansetron 4 mg VIAL 2 MG/ML 2 ml VIAL IV ONE (14:40)
[2024-02-27] MEDS: Lidocaine 2% JELLY 6 ML Topical TOPICAL ONE (14:40)
[2024-02-27] MEDS: LaCOSAMide ORALSYR LIQ 10 MG/ML PO SCH (20:59)
[2024-02-27] MEDS: Antihemophilic Factor/Von Wil 1000 UNIT VIAL (dose=VWF) IV ONE (21:16)
[2024-02-27] MEDS: Antihemophilic Factor/Von Wil 500 UNIT VIAL (dose=VWF) IV ONE (21:18)
[2024-02-28 06:20] LABS: ABS Eosinophils 0.4 10^3/uL (0.0-0.5); ABS Lymphocytes 2.5 10^3/uL (1.0-4.8); ABS Monocytes 0.6 10^3/uL (0.0-0.9); ABS Neutrophils 5.2 10^3/uL (1.5-7.6); ABS Nucleated RBC 0.01 10^3/ul; Eosinophil % 4.6 %; Hematocrit 38.2 % (35-45); Hemoglobin 13.5 g/dL (11.5-14.3); Lymphocyte % 28.5 %; Mean Corpuscular Hgb Conc 35.3 g/dL (31-36); Mean Corpuscular Volume 90.6 fL (80-97); Mean Platelet Volume 8.1 fL (7.5-11.2); Nucleated Red Blood Cells % 0.1 %/100WBC (0.0-0.8); Platelet Count 231 10^3/uL (150-450); Red Blood Count 4.21 10^6/uL (3.63-4.92); Red Cell Distribution Width 12.5 % (12-17); White Blood Count 8.7 10^3/uL (3.8-11.8)
[2024-02-28 07:08] LABS: Creatinine, Serum 0.57 mg/dL (0.51-0.95); Potassium 3.9 mmol/L (3.5-5.0); eGFR CKD-EPI 127.7 (>60)
[2024-02-28] MEDS: Antihemophilic Factor/Von Wil 500 UNIT VIAL (dose=VWF) IV ONE (12:57)
[2024-02-28] MEDS: Antihemophilic Factor/Von Wil 1000 UNIT VIAL (dose=VWF) IV ONE (12:59)
[2024-02-28 14:20] VITALS: BP 116/71
== END 2024-02-28 16:15 | disposition home or self-care (01) ==
LOC: ENDO 09:07 → SSU 09:07
PROVIDERS: ADMIT Internal Medicine Gastroenterology; ATTEND Internal Medicine